=== PATIENT | female | born 1960 | race Two or more races ===

== ENCOUNTER → 2022-01-26 | Outpatient (CLI) | payer MEDICAID | END | disposition home or self-care (01) | LOC: XYW 09:10 | PROVIDERS: ATTEND Student in an Organized Health Care Education/Training Program | DX: I70.203 Unspecified atherosclerosis of native arteries of extremities, bilateral legs (principal); E11.42 Type 2 diabetes mellitus with diabetic polyneuropathy | CPT/HCPCS: 93925 ==

== ENCOUNTER 2024-11-09 10:03 | Outpatient (CLI) | payer OTHER, MEDICAID | END 2024-11-09 17:00 | disposition home or self-care (01) | LOC: Rad HDHVI 10:03 | PROVIDERS: ATTEND Internal Medicine Cardiovascular Disease | DX: I34.0 Nonrheumatic mitral (valve) insufficiency (principal); I25.10 Atherosclerotic heart disease of native coronary artery without angina pectoris | CPT/HCPCS: 93306 ==

== ENCOUNTER 2024-11-17 09:18 | Outpatient (CLI) | payer OTHER, MEDICAID ==
[~2024-11-17] VITALS: Ht 165.1 cm; Wt 64.9 kg
[2024-11-17] MEDS ORDERED: ADENOSINE 90 MG/30 ML INJ IV ONE (09:53)
[2024-11-17] MEDS ORDERED: ADENOSINE 54 MG in GIVE UN-DILUTED 0 ML IV ONE (13:15)
== END 2024-11-17 17:00 | disposition home or self-care (01) ==
LOC: Rad HDHVI 09:18
PROVIDERS: ATTEND Internal Medicine Cardiovascular Disease
DX: I49.1 Atrial premature depolarization (principal); R00.1 Bradycardia, unspecified; Z13.6 Encounter for screening for cardiovascular disorders; I10 Essential (primary) hypertension; E11.42 Type 2 diabetes mellitus with diabetic polyneuropathy; E78.00 Pure hypercholesterolemia, unspecified; I73.9 Peripheral vascular disease, unspecified; I25.10 Atherosclerotic heart disease of native coronary artery without angina pectoris; F17.210 Nicotine dependence, cigarettes, uncomplicated; Z79.82 Long term (current) use of aspirin
CPT/HCPCS: 78452; 93017; A9500; J0153